=== PATIENT | male | born 1980 | race Caucasian/White ===

== ENCOUNTER 2019-04-17 21:21 | Emergency (ER) | payer SELFPAY ==
[~2019-04-17] VITALS: Ht 193 cm; Wt 78.0 kg
[2019-04-17 21:26] VITALS: BP 125/73
== END 2019-04-17 21:45 | disposition left against medical advice (07) ==
LOC: ED 21:39
DX: M54.9 Dorsalgia, unspecified (principal); Z53.21 Procedure and treatment not carried out due to patient leaving prior to being seen by health care provider

== ENCOUNTER 2019-07-19 20:20 | Emergency (ER) | payer BC, OTHER ==
[~2019-07-19] VITALS: Ht 182.9 cm; Wt 72.1 kg
[2019-07-19 20:58] VITALS: BP 136/82
[2019-07-19] MEDS ORDERED: DIPH,PERTUSS(ACELL),TET VAC/PF 0.5 ML IM-VACC ONE ×2 (21:00→21:57)
[2019-07-19] MEDS ORDERED: LIDOCAINE-MPF 1%, 5ML INFIL ONE (21:00)
[2019-07-19] MEDS ORDERED: LIDOCAINE-MPF 1%, 5ML ONE (21:26)
[2019-07-19] MEDS ORDERED: NEOSPORIN OINT. PKT 1 PACKET ONE (21:52)
== END 2019-07-19 22:09 | disposition home or self-care (01) ==
LOC: ED 21:21
DX: S61.452A Open bite of left hand, initial encounter (principal); W54.0XXA Bitten by dog, initial encounter; Y93.89 Activity, other specified; Y92.098 Other place in other non-institutional residence as the place of occurrence of the external cause; Y99.8 Other external cause status
CPT/HCPCS: 12041; 90471; 90715; 99284